=== PATIENT | male | born 1965 ===

== ENCOUNTER → 2021-12-27 09:28 | Outpatient (CLI) | payer OTHER, SELFPAY ==
[2021-12-27 14:22] LABS: COVID19 -Nasal RAPID Negative (Negative)
== END ==
PROVIDERS: Referring Provider Orthopaedic Surgery Orthopaedic Surgery of the Spine; Visit Provider Family Medicine Sleep Medicine
DX: Z20.822 Contact with and (suspected) exposure to COVID-19 (principal)
CPT/HCPCS: 87635; C9803

== ENCOUNTER 2021-12-29 13:59 | Day surgery (SDC) | payer OTHER, SELFPAY ==
--- NOTE | 2021-12-29 | DI.RAD.S_ITS ---
PROCEDURE: XR LUMBAR SPINE 2-3V INDICATIONS: L4-5 MICRODISCECTOMY TECHNIQUE: 2 operative views of the lumbar spine were acquired. COMPARISON: None. FINDINGS: 2 C-arm images demonstrate that the L4-L5 space has been localized posteriorly with a metallic instrument. IMPRESSION: Operative imaging utilized for lumbar localization. Dictated by: Eliceo Peters M.D. on 12/29/2021 at 17:18 Approved by: Eliceo Peters M.D. on 12/29/2021 at 17:19
[2021-12-29 14:57] VITALS: BP 125/76; PULSE 71; RESP 18; TEMP 36.4; O2SAT 100; BMI 16.0
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
[2021-12-29] MEDS: CEFAZOLIN 2 GM/20 ML SYRINGE IV (16:45)
--- NOTE | 2021-12-29 17:00 | SUR.OPER ---
Prone on spine table, head in foam head support, padded chest and pelvic supports, gel pad at knees, lower legs supported by pillows; nipples, genitalia and toes free of pressure, arms secured on foam padded arm boards at <90 degrees abduction. Tape over blanket at thigh secured to table. Gel pad between heels.
[2021-12-29] MEDS: EPINEPHrine 1 MG/ML 0.15 MG INJ (17:20)
[2021-12-29] MEDS: BUPIVACAINE 0.5% (PF) VIAL 30 ML INJ (17:21)
[2021-12-29 17:40] VITALS: BP 113/70; PULSE 78; RESP 15; TEMP 36.4; O2SAT 98
[2021-12-29 17:45] VITALS: BP 118/63; PULSE 83; RESP 16; O2SAT 98
[2021-12-29] MEDS: OXYCODONE/ACETAMINOPHEN 5/325 TABLET 1 TAB PO (17:45)
[2021-12-29 17:55] VITALS: BP 125/78; PULSE 81; RESP 12; O2SAT 100
[2021-12-29 18:00] VITALS: BP 131/76; PULSE 74; RESP 13; O2SAT 97
[2021-12-29] MEDS: LACTATED RINGERS 1,000 ML 42 ML IV (18:01)
--- NOTE | 2021-12-29 18:08 | SUR.PHASEI ---
discharge instructions reviewed with pt and he verbalized understanding.
[2021-12-29 18:10] VITALS: BP 126/63; PULSE 78; RESP 14; O2SAT 99
== END 2021-12-29 18:19 | disposition home or self-care (01) ==
PROVIDERS: PCP Nurse Practitioner; Referring Provider Orthopaedic Surgery Orthopaedic Surgery of the Spine; Visit Provider Orthopaedic Surgery Orthopaedic Surgery of the Spine
PROC: (CPT 63030; principal; 2021-12-29 15:45)
DX: M51.16 Intervertebral disc disorders with radiculopathy, lumbar region (principal)
CPT/HCPCS: 63030; 72100; 76000; 82962; J0171; J0690; J1100; J1885; J2250; J2405; J2704; J2920; J3010